=== PATIENT | female | born 1940 | race Caucasian/White ===

== ENCOUNTER 2016-11-05 07:45 | Day surgery (SDC) | payer OTHER, MEDICARE ==
[~2016-11-05] VITALS: Ht 152.4 cm; Wt 96.0 kg
[~2016-11-05 07:45] MED LIST: AMLODIPINE BESYL5 MG PO; ATORVASTATIN CA10 MG PO; AVAPRO150 MG PO; DAILY VALUE1 EACH PO; PROAIR HFA8.5 GM IH; SIMVASTATIN10 MG PO; SYNTHROID100 MCG PO; SYNTHROID112 MCG PO
== END 2016-11-05 19:31 | disposition home or self-care (01) ==
LOC: CATH 07:45
DX: I25.10 Atherosclerotic heart disease of native coronary artery without angina pectoris (principal); I25.82 Chronic total occlusion of coronary artery; I25.84 Coronary atherosclerosis due to calcified coronary lesion; E78.2 Mixed hyperlipidemia; G47.33 Obstructive sleep apnea (adult) (pediatric); I10 Essential (primary) hypertension; E07.9 Disorder of thyroid, unspecified; Z68.41 Body mass index [BMI] 40.0-44.9, adult; Z88.0 Allergy status to penicillin
CPT/HCPCS: 93005; C1760; C1769; C1887; C1894; J2250; J2405; J3010

== ENCOUNTER → 2017-03-19 | Outpatient (CLI) | payer OTHER, MEDICARE ==
[~2017-03-19] MED LIST changes: +LO-DOSE ASPIRIN81 M1 PO
== END | disposition home or self-care (01) ==
LOC: AMB 13:31
DX: K55.20 Angiodysplasia of colon without hemorrhage (principal); D50.9 Iron deficiency anemia, unspecified; K25.9 Gastric ulcer, unspecified as acute or chronic, without hemorrhage or perforation; Q27.39 Arteriovenous malformation, other site; J45.909 Unspecified asthma, uncomplicated; Q00-Q99 Congenital malformations, deformations and chromosomal abnormalities; K29.70 Gastritis, unspecified, without bleeding; E03.9 Hypothyroidism, unspecified; I10 Essential (primary) hypertension; Z79.82 Long term (current) use of aspirin; Z88.0 Allergy status to penicillin; Z87.891 Personal history of nicotine dependence
CPT/HCPCS: 88305; 88342 TC

== ENCOUNTER 2017-10-29 15:13 | Inpatient (IN) | payer OTHER, MEDICARE ==
[2017-10-29] VITALS (7 sets, daily range): BP systolic 110–141; BP diastolic 63–69
[~2017-10-29] VITALS: Ht 154.9 cm; Wt 87.1 kg
[~2017-10-29 15:13] MED LIST changes: +CARAFATE100 MG/ML PO; +LEVO-T125 MCG PO; +LIPITOR10 MG PO; +NITROSTAT0.3 MG SL; +NORVASC10 MG PO; +PLAVIX75 MG PO; +PROTONIX40 MG PO
[2017-10-29 15:38] LABS: HEMATOCRIT 22.1 % (36.0-46.0); MCH 32.4 PG (29.0-34.0); MCHC 30.3 G/DL (30.0-36.0); MCV 106.8 FL (83-99); NRBC (%) 0.3 /100 WBC (0-0); PLATELET COUNT 318 K/uL (156-360); RBC DIS.WIDTH-CV 15.4 % (11.8-14.6); RBC DIS.WIDTH-SD 60.2 % (39-53); RED BLOOD COUNT 2.07 M/uL (3.80-5.20); WHITE BLOOD COUNT 7.9 K/uL (4.1-10.2)
[2017-10-29 15:39] LABS: HEMOGLOBIN 6.7 G/DL (11.9-15.5)
[2017-10-29 15:43] LABS: CHLORIDE 106 mEq/L (99-109); POTASSIUM 4.1 mEq/L (3.7-5.4); SODIUM 142 mEq/L (136-147)
[2017-10-29 15:44] LABS: GLUCOSE 106 mg/dL (70-99)
[2017-10-29 15:48] LABS: CREATININE 4.4 mg/dL (0.6-1.3); GFR ESTIMATE (CALCULATED) 10 mL/min/
[2017-10-29 15:49] LABS: UREA NITROGEN (BUN) 29 mg/dL (9-23)
[2017-10-29 16:34] LABS: HEMATOCRIT 21.4 % (36.0-46.0); MCH 32.8 PG (29.0-34.0); MCHC 30.8 G/DL (30.0-36.0); MCV 106.5 FL (83-99); NRBC (%) 0.3 /100 WBC (0-0); PLATELET COUNT 304 K/uL (156-360); RBC DIS.WIDTH-CV 15.3 % (11.8-14.6); RBC DIS.WIDTH-SD 59.1 % (39-53); RED BLOOD COUNT 2.01 M/uL (3.80-5.20); WHITE BLOOD COUNT 7.5 K/uL (4.1-10.2)
[2017-10-29 16:35] LABS: HEMOGLOBIN 6.6 G/DL (11.9-15.5)
[2017-10-29] MEDS ORDERED: IRBESARTAN150 MG PO (18:00)
[2017-10-29] MEDS ORDERED: CYANOCOBAL1000 MCG/2 IM (18:00)
[2017-10-29] MEDS ORDERED: EPOGEN,PRO20000 UNIT SC (18:01)
[2017-10-29 19:16] LABS: HEMATOCRIT 20.5 % (36.0-46.0); HEMOGLOBIN 6.2 G/DL (11.9-15.5); MCH 32.5 PG (29.0-34.0); MCHC 30.2 G/DL (30.0-36.0); MCV 107.3 FL (83-99); NRBC (%) 0.4 /100 WBC (0-0); PLATELET COUNT 289 K/uL (156-360); RBC DIS.WIDTH-CV 15.6 % (11.8-14.6); RBC DIS.WIDTH-SD 59.7 % (39-53); RED BLOOD COUNT 1.91 M/uL (3.80-5.20); WHITE BLOOD COUNT 7.5 K/uL (4.1-10.2)
[2017-10-30] VITALS (12 sets, daily range): BP systolic 102–132; BP diastolic 50–67
[2017-10-30 04:27] LABS: HEMATOCRIT 27.9 % (36.0-46.0); HEMOGLOBIN 8.9 G/DL (11.9-15.5); MCV 96.5 FL (83-99)
[2017-10-30 04:36] LABS: CHLORIDE 108 mEq/L (99-109); POTASSIUM 4.3 mEq/L (3.7-5.4); SODIUM 142 mEq/L (136-147)
[2017-10-30 04:38] LABS: GLUCOSE 118 mg/dL (70-99)
[2017-10-30 04:42] LABS: CREATININE 4.3 mg/dL (0.6-1.3); GFR ESTIMATE (CALCULATED) 11 mL/min/
[2017-10-30 04:43] LABS: UREA NITROGEN (BUN) 30 mg/dL (9-23)
[2017-10-30 17:48] LABS: HEMATOCRIT 28.5 % (36.0-46.0); HEMOGLOBIN 8.6 G/DL (11.9-15.5); MCV 98.3 FL (83-99)
[2017-10-31 00:04] VITALS: BP 113/54
[2017-10-31 00:37] VITALS: BP 119/56
[2017-10-31 03:43] VITALS: BP 109/52
[2017-10-31 06:15] LABS: BASOPHIL (%) 0.1 % (0-1); EOSINOPHIL COUNT 0.1 K/uL (0-0.3); HEMATOCRIT 31.1 % (36.0-46.0); HEMOGLOBIN 9.9 G/DL (11.9-15.5); IMM.RETIC FRACTION 28.6 % (3-19); IMMATURE GRANULOCYTE (%) 0.6 % (0.0-0.7); LYMPHOCYTE COUNT 0.9 K/uL (1.0-2.8); MCH 29.7 PG (29.0-34.0); MCHC 31.8 G/DL (30.0-36.0); MCV 93.4 FL (83-99); MONOCYTE (%) 7.6 % (3-12); MONOCYTE COUNT 0.7 K/uL (0-0.8); NEUTROPHIL (%) 80.7 % (45-76); NEUTROPHIL COUNT 7.6 K/uL (1.8-6.4); NRBC (%) 0.3 /100 WBC (0-0); PLATELET COUNT 276 K/uL (156-360); RBC DIS.WIDTH-CV 20.5 % (11.8-14.6); RBC DIS.WIDTH-SD 68.8 % (39-53); RED BLOOD COUNT 3.33 M/uL (3.80-5.20); RETIC HGB EQUIVALENT 24.5 (28-36); RETICULOCYTE COUNT 1.8 % (0.5-1.8); WHITE BLOOD COUNT 9.4 K/uL (4.1-10.2)
[2017-10-31 06:35] LABS: IRON 67 MCG/DL (35-150); TRANSFERRIN (TIBC) 155.8 mg/dL (215-380); TRANSFERRIN SATUR. 43 % (20-55)
[2017-10-31 06:38] LABS: ALBUMIN 3.2 G/DL (3.2-4.8); CHLORIDE 104 MEQ/L (99-109); CREATININE 4.3 MG/DL (0.6-1.3); GFR ESTIMATE (CALCULATED) 11 mL/min/; GLUCOSE 106 mg/dL (70-99); PHOSPHORUS 3.9 mg/dL (2.5-4.9); POTASSIUM 3.9 MEQ/L (3.7-5.4); SODIUM 139 MEQ/L (136-147); UREA NITROGEN (BUN) 41 mg/dL (9-23)
[2017-10-31 07:53] VITALS: BP 104/51
[2017-10-31 09:05] LABS: FERRITIN 142 NG/ML (10-291)
[2017-10-31] MEDS ORDERED: METOPROLOL SUCC25 MG PO (09:11)
[2017-10-31 11:47] VITALS: BP 112/53
[2017-10-31] MEDS ORDERED: ASPIR 8181 M1 PO (14:33)
== END 2017-10-31 15:07 | disposition home or self-care (01) | DRG 812 ==
LOC: EME 15:13 → 2EAST 17:46 → EDOF 17:46 → ENRESERV 17:52 → 2EAST 21:10
PROVIDERS: Emergency Medicine Emergency Medical Services; Family Medicine Sports Medicine; Internal Medicine Nephrology; Specialist
PROC: 30233N1 Transfusion of Nonautologous Red Blood Cells into Peripheral Vein, Percutaneous Approach (ICD-10-PCS; principal; 2017-10-29)
PROC: 0DJ08ZZ Inspection of Upper Intestinal Tract, Via Natural or Artificial Opening Endoscopic (ICD-10-PCS; 2017-10-30)
DX: D62 Acute posthemorrhagic anemia (principal); K92.2 Gastrointestinal hemorrhage, unspecified; D63.1 Anemia in chronic kidney disease; N17.9 Acute kidney failure, unspecified; K26.9 Duodenal ulcer, unspecified as acute or chronic, without hemorrhage or perforation; K29.60 Other gastritis without bleeding; I25.10 Atherosclerotic heart disease of native coronary artery without angina pectoris; I13.10 Hypertensive heart and chronic kidney disease without heart failure, with stage 1 through stage 4 chronic kidney disease, or unspecified chronic kidney disease; E11.22 Type 2 diabetes mellitus with diabetic chronic kidney disease; N18.4 Chronic kidney disease, stage 4 (severe); E03.9 Hypothyroidism, unspecified; E78.00 Pure hypercholesterolemia, unspecified; E78.5 Hyperlipidemia, unspecified; G47.33 Obstructive sleep apnea (adult) (pediatric); J45.909 Unspecified asthma, uncomplicated; K21.9 Gastro-esophageal reflux disease without esophagitis; E66.9 Obesity, unspecified; Z96.653 Presence of artificial knee joint, bilateral; Z87.891 Personal history of nicotine dependence; Z88.0 Allergy status to penicillin; Z95.5 Presence of coronary angioplasty implant and graft; Z68.36 Body mass index [BMI] 36.0-36.9, adult; Z79.02 Long term (current) use of antithrombotics/antiplatelets; Z79.82 Long term (current) use of aspirin; Z87.11 Personal history of peptic ulcer disease; Z90.5 Acquired absence of kidney
CPT/HCPCS: 71046; 76770; 80048; 80069; 82728; 83540; 84466; 85014; 85018; 85025; 85027; 85046; 86850; 86900; 86901; 86920; 93005; 99281; 99285; C9113; J1200; J1940; J2354; J7040; J7120; P9016

== ENCOUNTER 2017-11-20 00:05 | Inpatient (IN) | payer OTHER, MEDICARE ==
[2017-11-20] VITALS (12 sets, daily range): BP systolic 121–175; BP diastolic 57–84
[~2017-11-20] VITALS: Ht 154.9 cm; Wt 95.3 kg
[~2017-11-20 00:05] MED LIST changes: +ASPIR 8181 M1 PO; +CYANOCOBAL1000 MCG/2 IM; +EPOGEN,PRO20000 UNIT SC; +IRBESARTAN150 MG PO; +METOPROLOL SUCC25 MG PO
[2017-11-20 00:47] LABS: ALBUMIN 3.1 g/dL (3.2-4.8)
[2017-11-20 00:48] LABS: CHLORIDE 107 mEq/L (99-109); SODIUM 145 mEq/L (136-147)
[2017-11-20 00:50] LABS: GLUCOSE 120 mg/dL (70-99); TOTAL PROTEIN 5.9 g/dL (6.4-8.3)
[2017-11-20 00:51] LABS: HEMATOCRIT 17.7 % (36.0-46.0); MCH 31.1 PG (29.0-34.0); MCHC 31.6 G/DL (30.0-36.0); MCV 98.3 FL (83-99); NRBC (%) 0.4 /100 WBC (0-0); PLATELET COUNT 243 K/uL (156-360); RBC DIS.WIDTH-CV 21.4 % (11.8-14.6); RBC DIS.WIDTH-SD 70.4 % (39-53)
[2017-11-20 00:52] LABS: HEMOGLOBIN 5.6 G/DL (11.9-15.5); TOTAL BILIRUBIN 0.3 mg/dL (0.0-1.0)
[2017-11-20 00:53] LABS: ALKALINE PHOSPHATASE 63 IU/L (3-129)
[2017-11-20 00:54] LABS: CREATININE 4.9 mg/dL (0.6-1.3); GFR ESTIMATE (CALCULATED) 9 mL/min/
[2017-11-20 00:55] LABS: AST (GOT) 17 IU/L (2-34); UREA NITROGEN (BUN) 41 mg/dL (9-23)
[2017-11-20 00:57] LABS: ALT (GPT) 7 IU/L (3-49); LIPASE 23 U/L (1.0-51.0)
[2017-11-20 01:47] LABS: INTER. NORMALIZED RATIO 1.2
[2017-11-20 01:50] LABS: PTT 25.5 SEC (25-37)
[2017-11-20] MEDS ORDERED: RANITIDINE HCL300 MG PO (09:39)
[2017-11-20] MEDS ORDERED: TOPROL XL25 MG PO (09:39)
[2017-11-20] MEDS ORDERED: VENTOLIN HFA18 GM IH (09:40)
[2017-11-20] MEDS ORDERED: LEVOTHYROXINE125 MCG PO (09:41)
[2017-11-20] MEDS ORDERED: NITROGLYCERIN0.4 MG SL (09:41)
[2017-11-20] MEDS ORDERED: PLAVIX75 MG PO (09:41)
[2017-11-20] MEDS ORDERED: ATORVASTATIN CA10 MG PO (09:42)
[2017-11-20] MEDS ORDERED: BREO ELLIPTA I1 EACH IH (09:45)
[2017-11-20 09:50] LABS: HEMATOCRIT 26.7 % (36.0-46.0); MCV 98.2 FL (83-99)
[2017-11-20 09:51] LABS: HEMOGLOBIN 8.7 G/DL (11.9-15.5)
[2017-11-20 12:21] LABS: HEMATOCRIT 26.5 % (36.0-46.0); HEMOGLOBIN 8.4 G/DL (11.9-15.5); MCV 98.9 FL (83-99)
[2017-11-20 20:14] LABS: HEMATOCRIT 30.3 % (36.0-46.0); HEMOGLOBIN 9.7 G/DL (11.9-15.5); MCV 99.7 FL (83-99)
[2017-11-20 20:34] LABS: CHLORIDE 110 MEQ/L (99-109); CREATININE 4.2 MG/DL (0.6-1.3); GFR ESTIMATE (CALCULATED) 11 mL/min/; GLUCOSE 111 mg/dL (70-99); POTASSIUM 3.4 MEQ/L (3.7-5.4); SODIUM 142 MEQ/L (136-147); UREA NITROGEN (BUN) 42 mg/dL (9-23)
[2017-11-21] VITALS (10 sets, daily range): BP systolic 99–130; BP diastolic 52–68
[2017-11-21 00:48] LABS: HEMATOCRIT 23.7 % (36.0-46.0); MCV 97.9 FL (83-99)
[2017-11-21 06:30] LABS: BASOPHIL (%) 0.2 % (0-1); EOSINOPHIL (%) 0.2 % (0-5); HEMATOCRIT 27.2 % (36.0-46.0); HEMOGLOBIN 8.9 G/DL (11.9-15.5); IMMATURE GRANULOCYTE (%) 1.1 % (0.0-0.7); LYMPHOCYTE COUNT 0.9 K/uL (1.0-2.8); MCH 31.4 PG (29.0-34.0); MCHC 32.7 G/DL (30.0-36.0); MCV 96.1 FL (83-99); MONOCYTE COUNT 0.8 K/uL (0-0.8); NEUTROPHIL (%) 79.5 % (45-76); NEUTROPHIL COUNT 6.8 K/uL (1.8-6.4); NRBC (%) 0.9 /100 WBC (0-0); RBC DIS.WIDTH-CV 17.7 % (11.8-14.6); RBC DIS.WIDTH-SD 57.1 % (39-53); WHITE BLOOD COUNT 8.5 K/uL (4.1-10.2)
[2017-11-21 06:36] LABS: ALBUMIN 2.4 G/DL (3.2-4.8); ALKALINE PHOSPHATASE 53 IU/L (3-129); ALT (GPT) 6 IU/L (3-49); AST (GOT) 15 IU/L (2-34); CHLORIDE 111 MEQ/L (99-109); CREATININE 4.2 MG/DL (0.6-1.3); GFR ESTIMATE (CALCULATED) 11 mL/min/; GLUCOSE 94 mg/dL (70-99); MAGNESIUM 1.3 mg/dl (1.3-2.7); PHOSPHORUS 3.8 mg/dL (2.5-4.9); POTASSIUM 3.3 MEQ/L (3.7-5.4); SODIUM 142 MEQ/L (136-147); TOTAL BILIRUBIN 0.5 MG/DL (0.0-1.0); TOTAL PROTEIN 4.7 G/DL (6.4-8.3); UREA NITROGEN (BUN) 48 mg/dL (9-23); URIC ACID 5.8 mg/dL (3.1-9.2)
[2017-11-21 06:38] LABS: RED BLOOD COUNT 2.83 M/uL (3.80-5.20)
[2017-11-21 06:54] LABS: PLAT.SUFFICIENCY ADEQUATE
[2017-11-21 06:56] LABS: PLATELET COUNT 148 K/uL (156-360)
[2017-11-21 12:36] LABS: HEMATOCRIT 31.1 % (36.0-46.0); HEMOGLOBIN 10.1 G/DL (11.9-15.5); MCV 96.6 FL (83-99)
[2017-11-21 18:01] LABS: HEMATOCRIT 29.8 % (36.0-46.0); HEMOGLOBIN 9.7 G/DL (11.9-15.5)
[2017-11-22 03:40] VITALS: BP 100/49
[2017-11-22 07:15] LABS: HEMATOCRIT 27.2 % (36.0-46.0); HEMOGLOBIN 8.6 G/DL (11.9-15.5); MCHC 31.6 G/DL (30.0-36.0); MCV 98.2 FL (83-99); NRBC (%) 0.9 /100 WBC (0-0); PLATELET COUNT 127 K/uL (156-360); RBC DIS.WIDTH-CV 18.4 % (11.8-14.6); RBC DIS.WIDTH-SD 61.1 % (39-53); RED BLOOD COUNT 2.77 M/uL (3.80-5.20); WHITE BLOOD COUNT 5.7 K/uL (4.1-10.2)
[2017-11-22 07:33] VITALS: BP 105/50
[2017-11-22 07:43] LABS: ALBUMIN 2.5 G/DL (3.2-4.8); CHLORIDE 111 MEQ/L (99-109); CREATININE 4.2 MG/DL (0.6-1.3); GFR ESTIMATE (CALCULATED) 11 mL/min/; GLUCOSE 91 mg/dL (70-99); IRON 148 MCG/DL (35-150); PHOSPHORUS 4.3 mg/dL (2.5-4.9); POTASSIUM 3.3 MEQ/L (3.7-5.4); SODIUM 143 MEQ/L (136-147); TRANSFERRIN (TIBC) 90.5 mg/dL (215-380); TRANSFERRIN SATUR. 164 % (20-55); UREA NITROGEN (BUN) 47 mg/dL (9-23)
[2017-11-22 11:37] VITALS: BP 132/67
[2017-11-22 12:09] LABS: APPEARANCE SL.HAZY ((CLEAR)); BILIRUBIN NEGATIVE; BLOOD MODERATE; COLOR YELLOW ((YELLOW)); GLUCOSE (STRIP) 50; KETONES NEGATIVE; LEUKOCYTES TRACE; NITRITE NEGATIVE; PROTEIN (STRIP) 100; SPECIFIC GRAVITY 1.017 (1.000-1.030); UROBILINOGEN 0.2 MG/DL (0.2-1.0)
[2017-11-22 12:15] LABS: BACTERIA RARE /HPF; EPITHELIAL CELLS 1+ /HPF; MUCUS TRACE /LPF; RED BLOOD CELLS 0-5 /HPF (0-5); UCUL ADDED? YES
[2017-11-22 15:59] VITALS: BP 117/55
[2017-11-22 19:36] VITALS: BP 133/60
[2017-11-22 23:25] VITALS: BP 139/64
[2017-11-23 03:36] VITALS: BP 141/68
[2017-11-23 06:54] LABS: BASOPHIL (%) 0.3 % (0-1); EOSINOPHIL (%) 0.4 % (0-5); HEMATOCRIT 29.7 % (36.0-46.0); HEMOGLOBIN 9.5 G/DL (11.9-15.5); LYMPHOCYTE COUNT 0.7 K/uL (1.0-2.8); MCH 31.6 PG (29.0-34.0); MCV 98.7 FL (83-99); MONOCYTE (%) 6.3 % (3-12); MONOCYTE COUNT 0.5 K/uL (0-0.8); NEUTROPHIL COUNT 6.3 K/uL (1.8-6.4); NRBC (%) 0.8 /100 WBC (0-0); PLATELET COUNT 164 K/uL (156-360); RBC DIS.WIDTH-CV 18.9 % (11.8-14.6); RED BLOOD COUNT 3.01 M/uL (3.80-5.20); WHITE BLOOD COUNT 7.6 K/uL (4.1-10.2)
[2017-11-23 07:20] LABS: CHLORIDE 109 MEQ/L (99-109); GFR ESTIMATE (CALCULATED) 12 mL/min/; GLUCOSE 93 mg/dL (70-99); POTASSIUM 3.3 MEQ/L (3.7-5.4); SODIUM 144 MEQ/L (136-147); UREA NITROGEN (BUN) 37 mg/dL (9-23)
[2017-11-23 07:30] VITALS: BP 119/56
[2017-11-23 11:34] VITALS: BP 116/53
[2017-11-23 19:53] VITALS: BP 155/93
[2017-11-24] VITALS (7 sets, daily range): BP systolic 95–129; BP diastolic 55–62
[2017-11-24 06:51] LABS: BASOPHIL (%) 0.3 % (0-1); EOSINOPHIL (%) 0.3 % (0-5); HEMATOCRIT 29.1 % (36.0-46.0); HEMOGLOBIN 9.3 G/DL (11.9-15.5); IMMATURE GRANULOCYTE (%) 1.2 % (0.0-0.7); LYMPHOCYTE (%) 11.1 % (15-42); LYMPHOCYTE COUNT 0.6 K/uL (1.0-2.8); MCH 31.8 PG (29.0-34.0); MCV 99.7 FL (83-99); MONOCYTE (%) 8.1 % (3-12); MONOCYTE COUNT 0.5 K/uL (0-0.8); NEUTROPHIL COUNT 4.6 K/uL (1.8-6.4); NRBC (%) 0.7 /100 WBC (0-0); PLATELET COUNT 163 K/uL (156-360); RBC DIS.WIDTH-CV 19.3 % (11.8-14.6); RBC DIS.WIDTH-SD 62.7 % (39-53); RED BLOOD COUNT 2.92 M/uL (3.80-5.20); WHITE BLOOD COUNT 5.8 K/uL (4.1-10.2)
[2017-11-24 07:15] LABS: CHLORIDE 111 MEQ/L (99-109); CREATININE 4.1 MG/DL (0.6-1.3); GFR ESTIMATE (CALCULATED) 11 mL/min/; GLUCOSE 91 mg/dL (70-99); POTASSIUM 3.4 MEQ/L (3.7-5.4); SODIUM 144 MEQ/L (136-147); UREA NITROGEN (BUN) 32 mg/dL (9-23)
[2017-11-24 07:16] LABS: MAGNESIUM 2.1 mg/dl (1.3-2.7)
[2017-11-25 07:05] LABS: HEMATOCRIT 28.3 % (36.0-46.0); HEMOGLOBIN 8.8 G/DL (11.9-15.5); MCV 99.3 FL (83-99)
[2017-11-25 07:54] VITALS: BP 123/51
[2017-11-25] MEDS ORDERED: FUROSEMIDE20 MG PO (14:09)
[2017-11-25] MEDS ORDERED: PANTOPRAZOLE SO40 MG PO (14:10)
[2017-11-25] MEDS ORDERED: OXYGEN MC (14:16)
== END 2017-11-25 15:35 | disposition home or self-care (01) | DRG 377 ==
LOC: EME 00:05 → 2EASTP 03:40 → EDOF 03:40 → 4EAST 03:40 → ENRESERV 04:09 → 4EAST 10:03 → ENRESERV 11-21 20:14 → 2EASTP 11-21 22:43
PROVIDERS: Emergency Medicine; Family Medicine; Family Medicine Sports Medicine; Internal Medicine Gastroenterology; Internal Medicine Nephrology
DX: K92.2 Gastrointestinal hemorrhage, unspecified (principal); N17.0 Acute kidney failure with tubular necrosis; D62 Acute posthemorrhagic anemia; N18.4 Chronic kidney disease, stage 4 (severe); E11.22 Type 2 diabetes mellitus with diabetic chronic kidney disease; I12.9 Hypertensive chronic kidney disease with stage 1 through stage 4 chronic kidney disease, or unspecified chronic kidney disease; D17.5 Benign lipomatous neoplasm of intra-abdominal organs; D63.1 Anemia in chronic kidney disease; E03.9 Hypothyroidism, unspecified; E78.5 Hyperlipidemia, unspecified; E86.0 Dehydration; E87.2 Acidosis; E87.6 Hypokalemia; I25.10 Atherosclerotic heart disease of native coronary artery without angina pectoris; K21.9 Gastro-esophageal reflux disease without esophagitis; K25.9 Gastric ulcer, unspecified as acute or chronic, without hemorrhage or perforation; K26.9 Duodenal ulcer, unspecified as acute or chronic, without hemorrhage or perforation; K29.70 Gastritis, unspecified, without bleeding; K31.819 Angiodysplasia of stomach and duodenum without bleeding; K55.20 Angiodysplasia of colon without hemorrhage; K64.8 Other hemorrhoids; Z95.5 Presence of coronary angioplasty implant and graft; Z90.5 Acquired absence of kidney; Z90.710 Acquired absence of both cervix and uterus; E66.9 Obesity, unspecified; Z68.38 Body mass index [BMI] 38.0-38.9, adult; E11.21 Type 2 diabetes mellitus with diabetic nephropathy; R09.02 Hypoxemia
CPT/HCPCS: 74176; 80048; 80048 91; 80053; 80069; 81003; 83540; 83605; 83690; 83735; 84100; 84466; 84550; 85014; 85018; 85025; 85027; 85610; 85730; 86850; 86900; 86901; 86920; 87077; 87086; 87186; 88305; 94640; 94640 76; 96365; 99202; 99281; 99285; C9113; J0881; J1940; J2405; J3480; J7030; J7050; J7120; P9016; Q0138; S0030

== ENCOUNTER 2017-12-08 08:26 | Day surgery (SDC) | payer OTHER, MEDICARE ==
[~2017-12-08 08:26] MED LIST changes: +BREO ELLIPTA I1 EACH IH; +FUROSEMIDE20 MG PO; +LEVOTHYROXINE125 MCG PO; +NITROGLYCERIN0.4 MG SL; +OXYGEN MC; +PANTOPRAZOLE SO40 MG PO; +RANITIDINE HCL300 MG PO; +TOPROL XL25 MG PO; +VENTOLIN HFA18 GM IH
== END 2017-12-08 10:57 | disposition home or self-care (01) ==
LOC: CATH 08:26
DX: I12.9 Hypertensive chronic kidney disease with stage 1 through stage 4 chronic kidney disease, or unspecified chronic kidney disease (principal); N18.9 Chronic kidney disease, unspecified; Z99.2 Dependence on renal dialysis; Z88.0 Allergy status to penicillin
CPT/HCPCS: C1750; C1894; J1644; J2250; J3010; S0020

== ENCOUNTER 2017-12-10 12:47 | Inpatient (IN) | payer OTHER, MEDICARE ==
[~2017-12-10] VITALS: Ht 154.9 cm; Wt 88.7 kg
[2017-12-10] VITALS (8 sets, daily range): BP systolic 97–128; BP diastolic 52–85
[2017-12-10 13:47] LABS: CARBON DIOXIDE (BICARBONATE) 37.7 MEQ/L (20-31)
[2017-12-10 13:51] LABS: CHLORIDE 99 mEq/L (99-109); SODIUM 144 mEq/L (136-147)
[2017-12-10 13:52] LABS: GLUCOSE 91 mg/dL (70-99)
[2017-12-10 13:53] LABS: HEMATOCRIT 21.5 % (36.0-46.0); HEMOGLOBIN 6.9 G/DL (11.9-15.5); MCH 31.9 PG (29.0-34.0); MCHC 32.1 G/DL (30.0-36.0); MCV 99.5 FL (83-99); NRBC (%) 0.5 /100 WBC (0-0); PLATELET COUNT 168 K/uL (156-360); RBC DIS.WIDTH-CV 21.8 % (11.8-14.6); RBC DIS.WIDTH-SD 77.4 % (39-53); RED BLOOD COUNT 2.16 M/uL (3.80-5.20); WHITE BLOOD COUNT 6.5 K/uL (4.1-10.2)
[2017-12-10 13:56] LABS: CREATININE 3.1 mg/dL (0.6-1.3); GFR ESTIMATE (CALCULATED) 16 mL/min/
[2017-12-10 13:57] LABS: UREA NITROGEN (BUN) 24 mg/dL (9-23)
[2017-12-10 14:02] LABS: TROP-I INTERPRETATION INDETERMINATE; TROPONIN-I 0.53 ng/mL (0.0-0.30)
[2017-12-10 14:03] LABS: POTASSIUM 2.4 mEq/L (3.7-5.4)
[2017-12-10] MEDS ORDERED: FUROSEMIDE20 MG PO (16:06)
[2017-12-10] MEDS ORDERED: ALBUTEROL2.5 MG/0.5 IH (16:07)
[2017-12-10] MEDS ORDERED: PROTONIX40 MG PO (16:07)
[2017-12-10 18:28] LABS: CHLORIDE 99 MEQ/L (99-109); GFR ESTIMATE (CALCULATED) 16 mL/min/; GLUCOSE 94 mg/dL (70-99); POTASSIUM 2.5 MEQ/L (3.7-5.4); SODIUM 143 MEQ/L (136-147); UREA NITROGEN (BUN) 23 mg/dL (9-23)
[2017-12-10 18:31] LABS: APPEARANCE CLOUDY ((CLEAR)); BILIRUBIN NEGATIVE; BLOOD LARGE; COLOR YELLOW ((YELLOW)); GLUCOSE (STRIP) NEGATIVE; KETONES 5; LEUKOCYTES SMALL; NITRITE NEGATIVE; PROTEIN (STRIP) 100; SPECIFIC GRAVITY 1.017 (1.000-1.030); UROBILINOGEN 0.2 MG/DL (0.2-1.0)
[2017-12-10 18:41] LABS: BACTERIA 3+ /HPF; EPITHELIAL CELLS RARE /HPF; MUCUS TRACE /LPF; UCUL ADDED? YES; WHITE BLOOD CELLS TNTC /HPF (0-5)
[2017-12-11 03:00] VITALS: BP 94/50
[2017-12-11 06:04] LABS: HEMATOCRIT 27.9 % (36.0-46.0); MCH 31.5 PG (29.0-34.0); NRBC (%) 0.5 /100 WBC (0-0); PLATELET COUNT 157 K/uL (156-360); RBC DIS.WIDTH-CV 19.4 % (11.8-14.6); RBC DIS.WIDTH-SD 59.8 % (39-53); WHITE BLOOD COUNT 5.6 K/uL (4.1-10.2)
[2017-12-11 06:07] LABS: HEMOGLOBIN 9.2 G/DL (11.9-15.5); MCV 95.5 FL (83-99); RED BLOOD COUNT 2.92 M/uL (3.80-5.20)
[2017-12-11 06:15] LABS: INTER. NORMALIZED RATIO 1.1
[2017-12-11 06:16] LABS: PTT 22.6 SEC (25-37)
[2017-12-11 06:35] LABS: CHLORIDE 99 MEQ/L (99-109); GFR ESTIMATE (CALCULATED) 16 mL/min/; GLUCOSE 85 mg/dL (70-99); SODIUM 140 MEQ/L (136-147); UREA NITROGEN (BUN) 25 mg/dL (9-23)
[2017-12-11 07:26] VITALS: BP 136/66
[2017-12-11 10:21] LABS: C DIFF TOXIN NEGATIVE (NEGATIVE)
[2017-12-11 11:14] VITALS: BP 117/56
[2017-12-11 16:21] VITALS: BP 102/50
[2017-12-11 19:00] VITALS: BP 101/57
[2017-12-11 23:00] VITALS: BP 105/56
[2017-12-12 01:16] LABS: STOOL OCCULT BLD 1ST SPECIMEN POSITIVE
[2017-12-12 04:00] VITALS: BP 104/51
[2017-12-12 05:19] LABS: HEMATOCRIT 32.4 % (36.0-46.0); HEMOGLOBIN 10.3 G/DL (11.9-15.5); MCH 30.8 PG (29.0-34.0); MCHC 31.8 G/DL (30.0-36.0); NRBC (%) 0.7 /100 WBC (0-0); PLATELET COUNT 178 K/uL (156-360); RBC DIS.WIDTH-CV 20.1 % (11.8-14.6); RBC DIS.WIDTH-SD 63.1 % (39-53); RED BLOOD COUNT 3.34 M/uL (3.80-5.20); WHITE BLOOD COUNT 8.2 K/uL (4.1-10.2)
[2017-12-12 08:15] VITALS: BP 117/64
[2017-12-12 10:18] LABS: ALBUMIN 2.9 G/DL (3.2-4.8); CHLORIDE 102 MEQ/L (99-109); CREATININE 2.5 MG/DL (0.6-1.3); GFR ESTIMATE (CALCULATED) 20 mL/min/; GLUCOSE 125 mg/dL (70-99); PHOSPHORUS 2.8 mg/dL (2.5-4.9); POTASSIUM 3.4 MEQ/L (3.7-5.4); SODIUM 140 MEQ/L (136-147); UREA NITROGEN (BUN) 13 mg/dL (9-23)
[2017-12-12 12:02] VITALS: BP 118/75
[2017-12-12 12:35] VITALS: BP 117/58
[2017-12-12 19:49] VITALS: BP 104/51
[2017-12-12 23:04] VITALS: BP 90/54
[2017-12-13] VITALS (8 sets, daily range): BP systolic 84–115; BP diastolic 50–64
[2017-12-13 05:27] LABS: HEMATOCRIT 29.5 % (36.0-46.0); HEMOGLOBIN 9.2 G/DL (11.9-15.5); MCH 30.8 PG (29.0-34.0); MCHC 31.2 G/DL (30.0-36.0); MCV 98.7 FL (83-99); NRBC (%) 0.6 /100 WBC (0-0); PLATELET COUNT 161 K/uL (156-360); RBC DIS.WIDTH-CV 19.9 % (11.8-14.6); RBC DIS.WIDTH-SD 64.9 % (39-53); RED BLOOD COUNT 2.99 M/uL (3.80-5.20); WHITE BLOOD COUNT 6.4 K/uL (4.1-10.2)
[2017-12-13 07:56] LABS: THYROTROPIN (TSH) 12.9 MIU/L (0.4-5.5)
[2017-12-14] VITALS (8 sets, daily range): BP systolic 87–124; BP diastolic 52–60
[2017-12-14 05:21] LABS: HEMATOCRIT 26.8 % (36.0-46.0); HEMOGLOBIN 8.4 G/DL (11.9-15.5); MCH 31.2 PG (29.0-34.0); MCHC 31.3 G/DL (30.0-36.0); MCV 99.6 FL (83-99); NRBC (%) 0.8 /100 WBC (0-0); PLATELET COUNT 152 K/uL (156-360); RBC DIS.WIDTH-CV 19.8 % (11.8-14.6); RBC DIS.WIDTH-SD 67.7 % (39-53); RED BLOOD COUNT 2.69 M/uL (3.80-5.20); WHITE BLOOD COUNT 6.1 K/uL (4.1-10.2)
[2017-12-15 00:02] VITALS: BP 95/54
[2017-12-15 02:53] VITALS: BP 134/66
[2017-12-15 05:26] LABS: HEMATOCRIT 28.2 % (36.0-46.0); HEMOGLOBIN 8.8 G/DL (11.9-15.5); MCH 31.1 PG (29.0-34.0); MCHC 31.2 G/DL (30.0-36.0); MCV 99.6 FL (83-99); NRBC (%) 0.9 /100 WBC (0-0); PLATELET COUNT 159 K/uL (156-360); RBC DIS.WIDTH-CV 19.6 % (11.8-14.6); RED BLOOD COUNT 2.83 M/uL (3.80-5.20); WHITE BLOOD COUNT 6.3 K/uL (4.1-10.2)
[2017-12-15 06:16] LABS: ABS NEUTROPHIL COUNT 4.8; ANISOCYTOSIS 1+; BAND NEUTROPHILS 3.5 % (0-8.0); EOSINOPHIL ABS CT 0.1; EOSINOPHILS 0.9 % (0-5.0); LYMPHOCYTES 13.2 % (15.0-45.0); MACROCYTES 2+; METAMYELOCYTES 0.9 %; MYELOCYTES 2.6 %; PLAT.SUFFICIENCY ADEQUATE; SEG.NEUTROPHILS 71.9 % (46.0-76.0)
[2017-12-15] MEDS ORDERED: XOPENEX1.25 MG/0. AEROSOL (08:57)
[2017-12-15] MEDS ORDERED: LOPRESSOR25 MG PO (08:58)
[2017-12-15] MEDS ORDERED: SUCRALFATE1 GM/10 ML PO (08:59)
[2017-12-15 09:25] LABS: ALBUMIN 2.6 G/DL (3.2-4.8); CHLORIDE 100 MEQ/L (99-109); POTASSIUM 3.5 MEQ/L (3.7-5.4); SODIUM 135 MEQ/L (136-147)
[2017-12-15 09:33] LABS: GFR ESTIMATE (CALCULATED) 10 mL/min/; GLUCOSE 94 mg/dL (70-99); PHOSPHORUS 2.6 mg/dL (2.5-4.9); UREA NITROGEN (BUN) 14 mg/dL (9-23)
[2017-12-15 09:37] LABS: CREATININE 4.7 MG/DL (0.6-1.3)
[2017-12-15 10:59] LABS: CHLORIDE 100 MEQ/L (99-109); CREATININE 4.5 MG/DL (0.6-1.3); GFR ESTIMATE (CALCULATED) 10 mL/min/; GLUCOSE 91 mg/dL (70-99); LACTATE DEHYDROGENASE 301 IU/L (20-246); POTASSIUM 3.4 MEQ/L (3.7-5.4); SODIUM 134 MEQ/L (136-147); UREA NITROGEN (BUN) 14 mg/dL (9-23)
[2017-12-15 12:08] VITALS: BP 94/45
[2017-12-15 16:06] VITALS: BP 103/51
[2017-12-15 19:00] VITALS: BP 102/56
[2017-12-16] VITALS: BP 91/47
[2017-12-16 03:00] VITALS: BP 107/58
[2017-12-16 05:57] LABS: HEMATOCRIT 31.3 % (36.0-46.0); MCH 31.5 PG (29.0-34.0); MCHC 31.9 G/DL (30.0-36.0); MCV 98.7 FL (83-99); NRBC (%) 0.8 /100 WBC (0-0); PLATELET COUNT 162 K/uL (156-360); RBC DIS.WIDTH-CV 19.3 % (11.8-14.6); RBC DIS.WIDTH-SD 63.7 % (39-53); RED BLOOD COUNT 3.17 M/uL (3.80-5.20); WHITE BLOOD COUNT 6.2 K/uL (4.1-10.2)
[2017-12-16 07:29] VITALS: BP 130/60
== END 2017-12-16 19:12 | disposition home or self-care (01) | DRG 811 ==
LOC: EME 12:47 → EDOF 15:22 → 4EAST 15:22 → ENRESERV 15:33 → 4EAST 17:25 → ENPENDDIS 12-16 → 4EAST 12-16 19:12
PROVIDERS: Emergency Medicine; Family Medicine Sports Medicine; Internal Medicine Nephrology; Specialist
PROC: 30233N1 Transfusion of Nonautologous Red Blood Cells into Peripheral Vein, Percutaneous Approach (ICD-10-PCS; principal; 2017-12-10)
PROC: 5A1D70Z Performance of Urinary Filtration, Intermittent, Less than 6 Hours Per Day (ICD-10-PCS; 2017-12-11)
DX: D62 Acute posthemorrhagic anemia (principal); I48.91 Unspecified atrial fibrillation; I13.2 Hypertensive heart and chronic kidney disease with heart failure and with stage 5 chronic kidney disease, or end stage renal disease; I50.9 Heart failure, unspecified; N18.6 End stage renal disease; I24.8 Other forms of acute ischemic heart disease; I25.82 Chronic total occlusion of coronary artery; J44.9 Chronic obstructive pulmonary disease, unspecified; I95.9 Hypotension, unspecified; K92.1 Melena; N39.0 Urinary tract infection, site not specified; B96.1 Klebsiella pneumoniae [K. pneumoniae] as the cause of diseases classified elsewhere; D63.1 Anemia in chronic kidney disease; E87.6 Hypokalemia; I25.10 Atherosclerotic heart disease of native coronary artery without angina pectoris; E78.5 Hyperlipidemia, unspecified; E03.9 Hypothyroidism, unspecified; G47.33 Obstructive sleep apnea (adult) (pediatric); K21.9 Gastro-esophageal reflux disease without esophagitis; Z96.653 Presence of artificial knee joint, bilateral; E66.9 Obesity, unspecified; Z68.36 Body mass index [BMI] 36.0-36.9, adult; Z99.2 Dependence on renal dialysis; Z95.5 Presence of coronary angioplasty implant and graft; Z90.5 Acquired absence of kidney; Z87.891 Personal history of nicotine dependence; Z88.0 Allergy status to penicillin; Z87.11 Personal history of peptic ulcer disease
CPT/HCPCS: 71045; 74250; 80048; 80048 91; 80069; 81003; 82272; 82607; 82803; 83010 90; 83605; 83615; 83880; 84439; 84443; 84484; 85025; 85027; 85610; 85730; 86850; 86900; 86901; 86920; 87040; 87077; 87086; 87177; 87186; 87493; 87506; 87641; 93005; 94640; 94640 76; 94799; 99202; 99281; 99285; A6214; C9113; J0696; J1644; J3475; J3480; P9016

== ENCOUNTER 2017-12-24 15:26 | Observation (INO) | payer OTHER, MEDICARE ==
[~2017-12-24] VITALS: Ht 154.9 cm; Wt 82.3 kg
[~2017-12-24 15:26] MED LIST changes: +ALBUTEROL2.5 MG/0.5 IH; +LOPRESSOR25 MG PO; +SUCRALFATE1 GM/10 ML PO; +XOPENEX1.25 MG/0. AEROSOL
[2017-12-24 17:14] LABS: HEMOGLOBIN 11.4 G/DL (11.9-15.5); MCH 31.8 PG (29.0-34.0); MCHC 32.6 G/DL (30.0-36.0); MCV 97.8 FL (83-99); PLATELET COUNT 144 K/uL (156-360); RBC DIS.WIDTH-CV 19.2 % (11.8-14.6); RBC DIS.WIDTH-SD 67.7 % (39-53); RED BLOOD COUNT 3.58 M/uL (3.80-5.20); WHITE BLOOD COUNT 9.5 K/uL (4.1-10.2)
[2017-12-24 17:22] LABS: ALBUMIN 2.9 g/dL (3.2-4.8); CHLORIDE 104 mEq/L (99-109); POTASSIUM 3.4 mEq/L (3.7-5.4); SODIUM 139 mEq/L (136-147)
[2017-12-24 17:25] LABS: GLUCOSE 108 mg/dL (70-99); TOTAL PROTEIN 6.3 g/dL (6.4-8.3)
[2017-12-24 17:27] LABS: TOTAL BILIRUBIN 0.5 mg/dL (0.0-1.0)
[2017-12-24 17:28] LABS: ALKALINE PHOSPHATASE 86 IU/L (3-129); CREATININE 2.4 mg/dL (0.6-1.3); GFR ESTIMATE (CALCULATED) 21 mL/min/
[2017-12-24 17:29] LABS: UREA NITROGEN (BUN) 5 mg/dL (9-23)
[2017-12-24 17:30] LABS: AST (GOT) 32 IU/L (2-34)
[2017-12-24 17:31] LABS: ALT (GPT) 9 IU/L (3-49)
[2017-12-24 17:34] LABS: TROP-I INTERPRETATION NEGATIVE; TROPONIN-I 0.24 ng/mL (0.0-0.30)
[2017-12-24] MEDS ORDERED: TOPROL XL50 MG PO (17:48)
[2017-12-24] MEDS ORDERED: VENTOLIN HFA18 GM IH (17:49)
[2017-12-24] MEDS ORDERED: ALBUTEROL2.5 MG/0.5 IH (17:50)
[2017-12-24 20:43] LABS: TROP-I INTERPRETATION NEGATIVE; TROPONIN-I 0.28 ng/mL (0.0-0.30)
[2017-12-24 21:46] LABS: THYROTROPIN (TSH) 24.1 MIU/L (0.4-5.5)
[2017-12-24 23:36] VITALS: BP 110/57
[2017-12-25 02:19] LABS: TROP-I INTERPRETATION INDETERMINATE; TROPONIN-I 0.41 ng/mL (0.0-0.30)
[2017-12-25 03:00] VITALS: BP 101/58
[2017-12-25 07:14] VITALS: BP 100/57
[2017-12-25 08:02] LABS: HEMOGLOBIN 11.1 G/DL (11.9-15.5); MCH 31.6 PG (29.0-34.0); MCHC 31.7 G/DL (30.0-36.0); MCV 99.7 FL (83-99); PLATELET COUNT 129 K/uL (156-360); RBC DIS.WIDTH-CV 19.8 % (11.8-14.6); RBC DIS.WIDTH-SD 69.8 % (39-53); RED BLOOD COUNT 3.51 M/uL (3.80-5.20); WHITE BLOOD COUNT 8.3 K/uL (4.1-10.2)
[2017-12-25 08:30] LABS: TROP-I INTERPRETATION INDETERMINATE; TROPONIN-I 0.35 ng/mL (0.0-0.30)
[2017-12-25 10:49] LABS: CHLORIDE 103 MEQ/L (99-109); GFR ESTIMATE (CALCULATED) 15 mL/min/; GLUCOSE 87 mg/dL (70-99); SODIUM 138 MEQ/L (136-147); UREA NITROGEN (BUN) 7 mg/dL (9-23)
[2017-12-25 10:51] LABS: CREATININE 3.2 MG/DL (0.6-1.3)
[2017-12-25 11:35] VITALS: BP 108/54
[2017-12-25 15:49] VITALS: BP 108/59
[2017-12-25 19:18] VITALS: BP 110/62
[2017-12-26 00:24] VITALS: BP 92/55
[2017-12-26 04:41] VITALS: BP 98/53
[2017-12-26 09:01] LABS: BASOPHIL (%) 0.3 % (0-1); EOSINOPHIL (%) 0.4 % (0-5); HEMATOCRIT 31.5 % (36.0-46.0); HEMOGLOBIN 9.9 G/DL (11.9-15.5); IMMATURE GRANULOCYTE (%) 0.6 % (0.0-0.7); LYMPHOCYTE (%) 12.7 % (15-42); LYMPHOCYTE COUNT 0.9 K/uL (1.0-2.8); MCH 31.5 PG (29.0-34.0); MCHC 31.4 G/DL (30.0-36.0); MCV 100.3 FL (83-99); MONOCYTE COUNT 0.6 K/uL (0-0.8); NEUTROPHIL COUNT 5.6 K/uL (1.8-6.4); PLATELET COUNT 130 K/uL (156-360); RBC DIS.WIDTH-CV 19.7 % (11.8-14.6); RBC DIS.WIDTH-SD 70.4 % (39-53); RED BLOOD COUNT 3.14 M/uL (3.80-5.20); WHITE BLOOD COUNT 7.2 K/uL (4.1-10.2)
[2017-12-26 09:11] LABS: ALBUMIN 2.6 G/DL (3.2-4.8); CHLORIDE 102 MEQ/L (99-109); POTASSIUM 3.5 MEQ/L (3.7-5.4); SODIUM 139 MEQ/L (136-147)
[2017-12-26 09:23] LABS: GLUCOSE 94 mg/dL (70-99); UREA NITROGEN (BUN) 12 mg/dL (9-23)
[2017-12-26 09:24] LABS: CREATININE 4.4 MG/DL (0.6-1.3); GFR ESTIMATE (CALCULATED) 10 mL/min/; PHOSPHORUS 4.6 mg/dL (2.5-4.9)
[2017-12-26] MEDS ORDERED: LEVOTHYROXINE125 MCG PO (12:25)
[2017-12-26 12:31] VITALS: BP 125/61
[2017-12-26] MEDS ORDERED: MULTI VITAMIN1 EACH PO (23:16)
[2017-12-27] MEDS ORDERED: ZOFRAN ODT4 MG PO (02:47)
== END 2017-12-26 13:35 | disposition home or self-care (01) ==
LOC: EME 15:26 → EDOF 20:18 → 4SOUTH 20:18 → ENRESERV 20:23 → 4SOUTH 23:14 → ENPENDDIS 12-26 → 4SOUTH 12-26 13:35
PROVIDERS: Emergency Medicine; Hospitalist; Internal Medicine Nephrology
PROC: 5A1D70Z Performance of Urinary Filtration, Intermittent, Less than 6 Hours Per Day (ICD-10-PCS; principal; 2017-12-26)
DX: I48.0 Paroxysmal atrial fibrillation (principal); I13.2 Hypertensive heart and chronic kidney disease with heart failure and with stage 5 chronic kidney disease, or end stage renal disease; N18.6 End stage renal disease; Z99.2 Dependence on renal dialysis; D63.1 Anemia in chronic kidney disease; Z90.5 Acquired absence of kidney; I50.9 Heart failure, unspecified; I25.10 Atherosclerotic heart disease of native coronary artery without angina pectoris; G47.33 Obstructive sleep apnea (adult) (pediatric); E78.5 Hyperlipidemia, unspecified; E03.9 Hypothyroidism, unspecified; J45.909 Unspecified asthma, uncomplicated; Z95.5 Presence of coronary angioplasty implant and graft; Z88.0 Allergy status to penicillin; Z87.891 Personal history of nicotine dependence
CPT/HCPCS: 71045; 80048; 80053; 80069; 83880; 84443; 84484; 85025; 85027; 93005; 94640; 94640 76; 94660; 94799; 99202; 99281; 99285; G0257; G0378; J0881; J1644

== ENCOUNTER 2017-12-26 21:14 | Inpatient (IN) | payer OTHER, MEDICARE ==
[~2017-12-26] VITALS: Ht 154.9 cm; Wt 81.2 kg
[~2017-12-26 21:14] MED LIST changes: +TOPROL XL50 MG PO
[2017-12-26 21:40] LABS: HEMATOCRIT 32.9 % (36.0-46.0); HEMOGLOBIN 10.6 G/DL (11.9-15.5); MCHC 32.2 G/DL (30.0-36.0); MCV 99.4 FL (83-99); PLATELET COUNT 140 K/uL (156-360); RBC DIS.WIDTH-CV 19.4 % (11.8-14.6); RBC DIS.WIDTH-SD 68.5 % (39-53); RED BLOOD COUNT 3.31 M/uL (3.80-5.20); WHITE BLOOD COUNT 8.5 K/uL (4.1-10.2)
[2017-12-26 21:49] LABS: CHLORIDE 102 mEq/L (99-109); POTASSIUM 3.5 mEq/L (3.7-5.4); SODIUM 140 mEq/L (136-147)
[2017-12-26 21:51] LABS: GLUCOSE 103 mg/dL (70-99); TOTAL PROTEIN 6.4 g/dL (6.4-8.3)
[2017-12-26 21:53] LABS: TOTAL BILIRUBIN 0.4 mg/dL (0.0-1.0)
[2017-12-26 21:54] LABS: ALKALINE PHOSPHATASE 77 IU/L (3-129)
[2017-12-26 21:55] LABS: GFR ESTIMATE (CALCULATED) 20 mL/min/
[2017-12-26 21:56] LABS: AST (GOT) 30 IU/L (2-34); UREA NITROGEN (BUN) 6 mg/dL (9-23)
[2017-12-26 21:57] LABS: ALT (GPT) 8 IU/L (3-49); CREATININE 2.5 mg/dL (0.6-1.3)
[2017-12-26 21:58] LABS: LIPASE 50 U/L (1.0-51.0)
[2017-12-26 22:31] LABS: TROP-I INTERPRETATION NEGATIVE; TROPONIN-I 0.23 ng/mL (0.0-0.30)
[2017-12-26] MEDS ORDERED: MULTI VITAMIN1 EACH PO (23:16)
[2017-12-27] VITALS (11 sets, daily range): BP systolic 83–115; BP diastolic 46–57
[2017-12-27 02:34] LABS: HEMATOCRIT 29.2 % (36.0-46.0); HEMOGLOBIN 9.4 G/DL (11.9-15.5); MCV 100.3 FL (83-99)
[2017-12-27] MEDS ORDERED: ZOFRAN ODT4 MG PO (02:47)
[2017-12-27 06:42] LABS: HEMATOCRIT 28.7 % (36.0-46.0); MCV 101.4 FL (83-99)
[2017-12-27 07:20] LABS: TROP-I INTERPRETATION NEGATIVE; TROPONIN-I 0.22 ng/mL (0.0-0.30)
[2017-12-27 12:17] LABS: HEMATOCRIT 25.7 % (36.0-46.0); MCV 102.8 FL (83-99)
[2017-12-27 12:48] LABS: TROP-I INTERPRETATION INDETERMINATE; TROPONIN-I 0.34 ng/mL (0.0-0.30)
[2017-12-28] VITALS (7 sets, daily range): BP systolic 96–119; BP diastolic 53–64
[2017-12-28 01:45] LABS: HEMATOCRIT 35.5 % (36.0-46.0); HEMOGLOBIN 11.5 G/DL (11.9-15.5); MCV 96.2 FL (83-99)
[2017-12-28 03:57] LABS: CHLORIDE 108 mEq/L (99-109); SODIUM 140 mEq/L (136-147)
[2017-12-28 03:58] LABS: MCHC 32.2 G/DL (30.0-36.0); NRBC (%) 0.5 /100 WBC (0-0); PLATELET COUNT 111 K/uL (156-360); RBC DIS.WIDTH-CV 20.4 % (11.8-14.6); RBC DIS.WIDTH-SD 68.8 % (39-53); RED BLOOD COUNT 3.68 M/uL (3.80-5.20); WHITE BLOOD COUNT 6.4 K/uL (4.1-10.2)
[2017-12-28 03:59] LABS: BASOPHIL (%) 0.5 % (0-1); EOSINOPHIL (%) 0.3 % (0-5); GLUCOSE 96 mg/dL (70-99); IMMATURE GRANULOCYTE (%) 1.1 % (0.0-0.7); LYMPHOCYTE (%) 16.5 % (15-42); LYMPHOCYTE COUNT 1.1 K/uL (1.0-2.8); MONOCYTE (%) 7.9 % (3-12); MONOCYTE COUNT 0.5 K/uL (0-0.8); NEUTROPHIL (%) 73.7 % (45-76); NEUTROPHIL COUNT 4.7 K/uL (1.8-6.4)
[2017-12-28 04:03] LABS: GFR ESTIMATE (CALCULATED) 12 mL/min/
[2017-12-28 04:04] LABS: UREA NITROGEN (BUN) 12 mg/dL (9-23)
[2017-12-29] VITALS (7 sets, daily range): BP systolic 90–122; BP diastolic 50–63
[2017-12-29 06:16] LABS: BASOPHIL (%) 0.4 % (0-1); EOSINOPHIL (%) 0.4 % (0-5); HEMATOCRIT 35.7 % (36.0-46.0); HEMOGLOBIN 11.2 G/DL (11.9-15.5); IMMATURE GRANULOCYTE (%) 0.7 % (0.0-0.7); LYMPHOCYTE (%) 11.5 % (15-42); LYMPHOCYTE COUNT 0.6 K/uL (1.0-2.8); MCH 30.8 PG (29.0-34.0); MCHC 31.4 G/DL (30.0-36.0); MCV 98.1 FL (83-99); MONOCYTE (%) 8.4 % (3-12); MONOCYTE COUNT 0.5 K/uL (0-0.8); NEUTROPHIL (%) 78.6 % (45-76); NEUTROPHIL COUNT 4.3 K/uL (1.8-6.4); NRBC (%) 0.7 /100 WBC (0-0); PLATELET COUNT 113 K/uL (156-360); RBC DIS.WIDTH-CV 19.5 % (11.8-14.6); RBC DIS.WIDTH-SD 67.8 % (39-53); RED BLOOD COUNT 3.64 M/uL (3.80-5.20); WHITE BLOOD COUNT 5.5 K/uL (4.1-10.2)
[2017-12-29 10:21] LABS: ALBUMIN 2.5 G/DL (3.2-4.8); CHLORIDE 104 MEQ/L (99-109); SODIUM 139 MEQ/L (136-147)
[2017-12-29 10:27] LABS: GFR ESTIMATE (CALCULATED) 9 mL/min/; GLUCOSE 111 mg/dL (70-99); PHOSPHORUS 5.6 mg/dL (2.5-4.9)
[2017-12-29 10:28] LABS: CREATININE 5.2 MG/DL (0.6-1.3); UREA NITROGEN (BUN) 21 mg/dL (9-23)
[2017-12-30 03:36] VITALS: BP 96/54
[2017-12-30 07:23] VITALS: BP 116/56
== END 2017-12-30 08:10 | disposition designated cancer center or children's hospital, planned readmission (85) | DRG 377 ==
LOC: EME → EDBD 21:14 → EME 21:14 → EDOF 12-27 05:16 → 4EAST 12-27 05:16 → EDOF 12-27 05:16 → EME 12-27 05:16 → ENRESERV 12-27 05:19 → 4EAST 12-27 07:05 → EDOF 12-27 07:05 → 4EAST 12-29 12:17
PROVIDERS: Emergency Medicine; Family Medicine Sports Medicine; Hospitalist; Internal Medicine Nephrology; Physician Assistant Medical
DX: K92.1 Melena (principal); I25.10 Atherosclerotic heart disease of native coronary artery without angina pectoris; Z95.5 Presence of coronary angioplasty implant and graft; G47.33 Obstructive sleep apnea (adult) (pediatric); I13.2 Hypertensive heart and chronic kidney disease with heart failure and with stage 5 chronic kidney disease, or end stage renal disease; N18.6 End stage renal disease; I50.9 Heart failure, unspecified; D62 Acute posthemorrhagic anemia; E03.9 Hypothyroidism, unspecified; E78.5 Hyperlipidemia, unspecified; I48.0 Paroxysmal atrial fibrillation; I50.30 Unspecified diastolic (congestive) heart failure; Z90.710 Acquired absence of both cervix and uterus; Z87.891 Personal history of nicotine dependence; Q27.33 Arteriovenous malformation of digestive system vessel; J44.9 Chronic obstructive pulmonary disease, unspecified; D63.1 Anemia in chronic kidney disease; Z87.11 Personal history of peptic ulcer disease; Z99.2 Dependence on renal dialysis; Z90.5 Acquired absence of kidney; E66.9 Obesity, unspecified; Z68.35 Body mass index [BMI] 35.0-35.9, adult; Z79.899 Other long term (current) drug therapy; I95.89 Other hypotension
CPT/HCPCS: 80048; 80053; 80069; 82948; 83690; 84484; 85014; 85018; 85025; 85027; 86850; 86900; 86901; 86920; 93005; 94640; 94640 76; 94660; 94799; 99202; 99281; 99285; C9113; J1160; J1644; J2354; J2405; J7040; P9016

== ENCOUNTER 2018-01-02 10:20 | Emergency (ER) | payer OTHER, MEDICARE ==
[~2018-01-02] VITALS: Ht 160 cm; Wt 80.4 kg
[~2018-01-02 10:20] MED LIST changes: +MULTI VITAMIN1 EACH PO; +ZOFRAN ODT4 MG PO
[2018-01-02 11:26] LABS: HEMATOCRIT 37.2 % (36.0-46.0); MCH 30.9 PG (29.0-34.0); MCHC 32.3 G/DL (30.0-36.0); MCV 95.9 FL (83-99); PLATELET COUNT 111 K/uL (156-360); RBC DIS.WIDTH-CV 20.7 % (11.8-14.6); RED BLOOD COUNT 3.88 M/uL (3.80-5.20); WHITE BLOOD COUNT 6.7 K/uL (4.1-10.2)
[2018-01-02 11:32] LABS: INTER. NORMALIZED RATIO 1.4
[2018-01-02 11:34] LABS: PTT 27.5 SEC (25-37)
[2018-01-02 11:39] LABS: ALBUMIN 3.2 g/dL (3.2-4.8); CHLORIDE 104 mEq/L (99-109); POTASSIUM 4.1 mEq/L (3.7-5.4); SODIUM 139 mEq/L (136-147)
[2018-01-02 11:41] LABS: GLUCOSE 94 mg/dL (70-99); TOTAL PROTEIN 6.5 g/dL (6.4-8.3)
[2018-01-02 11:45] LABS: ALKALINE PHOSPHATASE 88 IU/L (3-129); CREATININE 4.4 mg/dL (0.6-1.3); GFR ESTIMATE (CALCULATED) 10 mL/min/
[2018-01-02 11:46] LABS: AST (GOT) 23 IU/L (2-34); TOTAL BILIRUBIN 0.5 mg/dL (0.0-1.0); TROP-I INTERPRETATION NEGATIVE; UREA NITROGEN (BUN) 19 mg/dL (9-23)
[2018-01-02 11:48] LABS: ALT (GPT) 6 IU/L (3-49)
[2018-01-02 12:53] LABS: APPEARANCE CLOUDY ((CLEAR)); BILIRUBIN NEGATIVE; BLOOD MODERATE; COLOR AMBER ((YELLOW)); GLUCOSE (STRIP) NEGATIVE; KETONES NEGATIVE; LEUKOCYTES SMALL; NITRITE NEGATIVE; PROTEIN (STRIP) >=500; UROBILINOGEN 0.2 MG/DL (0.2-1.0)
[2018-01-02 13:05] LABS: BACTERIA 2+ /HPF; COARSE GRANULAR CASTS 0-5 /LPF; EPITHELIAL CELLS RARE /HPF; MUCUS 1+ /LPF; UCUL ADDED? YES
[2018-01-02 13:06] LABS: AMORPHOUS URATES CRYSTALS 2+; HYALINE CASTS 0-5 /LPF
[2018-01-02 13:30] VITALS: BP 84/44
[2018-01-02] MEDS ORDERED: BREO ELLIPTA I1 EACH IH (13:31)
[2018-01-02] MEDS ORDERED: FLAGYL500 MG PO (13:32)
[2018-01-02] MEDS ORDERED: DIALYVITE 801 TABLET PO (13:32)
[2018-01-02] MEDS ORDERED: PLAVIX75 MG PO (13:32)
[2018-01-02] MEDS ORDERED: LIPITOR10 MG PO (13:33)
[2018-01-02] MEDS ORDERED: CORDARONE200 MG PO (13:33)
[2018-01-02] MEDS ORDERED: LEVAQUIN750 MG PO (13:38)
[2018-01-05 10:54] LABS: STOOL OCCULT BLD 1ST SPECIMEN POSITIVE
== END 2018-01-02 13:30 | disposition home or self-care (01) ==
LOC: EME 10:20
PROVIDERS: Emergency Medicine Emergency Medical Services
DX: E87.70 Fluid overload, unspecified (principal); R09.02 Hypoxemia; K92.2 Gastrointestinal hemorrhage, unspecified; D68.9 Coagulation defect, unspecified; N39.0 Urinary tract infection, site not specified; I12.9 Hypertensive chronic kidney disease with stage 1 through stage 4 chronic kidney disease, or unspecified chronic kidney disease; N18.9 Chronic kidney disease, unspecified; Z99.2 Dependence on renal dialysis; J45.909 Unspecified asthma, uncomplicated; E78.00 Pure hypercholesterolemia, unspecified; Z87.891 Personal history of nicotine dependence; Z95.0 Presence of cardiac pacemaker; Z88.0 Allergy status to penicillin
CPT/HCPCS: 71045; 80053; 81003; 82272; 83880; 84484; 85027; 85610; 85730; 86850; 86900; 86901; 87086; 93005; 94640; 99281; 99285; C9113; J2354; J3475

== ENCOUNTER 2018-01-11 19:48 | Inpatient (IN) | payer OTHER, MEDICARE ==
[~2018-01-11] VITALS: Ht 154.9 cm; Wt 80.6 kg
[~2018-01-11 19:48] MED LIST changes: +CORDARONE200 MG PO; +DIALYVITE 801 TABLET PO; +FLAGYL500 MG PO; +LEVAQUIN750 MG PO
[2018-01-11 20:22] LABS: CHLORIDE 100 mEq/L (99-109); SODIUM 138 mEq/L (136-147)
[2018-01-11 20:24] LABS: GLUCOSE 98 mg/dL (70-99)
[2018-01-11 20:28] LABS: GFR ESTIMATE (CALCULATED) 7 mL/min/
[2018-01-11 20:29] LABS: UREA NITROGEN (BUN) 30 mg/dL (9-23)
[2018-01-11 20:39] LABS: MCH 31.1 PG (29.0-34.0); MCHC 32.8 G/DL (30.0-36.0); MCV 94.7 FL (83-99); NRBC (%) 0.2 /100 WBC (0-0); PLATELET COUNT 113 K/uL (156-360); RBC DIS.WIDTH-CV 22.1 % (11.8-14.6); WHITE BLOOD COUNT 17.5 K/uL (4.1-10.2)
[2018-01-11 20:40] LABS: HEMOGLOBIN 8.9 G/DL (11.9-15.5); RED BLOOD COUNT 2.83 M/uL (3.80-5.20)
[2018-01-11] MEDS ORDERED: LASIX20 MG PO (23:10)
[2018-01-11] MEDS ORDERED: SYNTHROID125 MCG PO (23:10)
[2018-01-11] MEDS ORDERED: TOPROL XL25 MG PO (23:11)
[2018-01-11] MEDS ORDERED: NORCO 5/3251 TABLET PO (23:11)
[2018-01-11] MEDS ORDERED: ZANTAC300 MG PO (23:11)
[2018-01-11] MEDS ORDERED: PROVENTIL,2.5 MG/3 M IH (23:11)
[2018-01-12] VITALS (8 sets, daily range): BP systolic 87–108; BP diastolic 45–54
[2018-01-12 06:38] LABS: HEMATOCRIT 30.9 % (36.0-46.0); HEMOGLOBIN 9.9 G/DL (11.9-15.5); MCH 30.7 PG (29.0-34.0); MCV 95.7 FL (83-99); NRBC (%) 0.3 /100 WBC (0-0); PLATELET COUNT 92 K/uL (156-360); RBC DIS.WIDTH-CV 20.7 % (11.8-14.6); RBC DIS.WIDTH-SD 67.9 % (39-53); RED BLOOD COUNT 3.23 M/uL (3.80-5.20); WHITE BLOOD COUNT 15.5 K/uL (4.1-10.2)
[2018-01-12 07:05] LABS: CHLORIDE 102 MEQ/L (99-109); CREATININE 6.4 MG/DL (0.6-1.3); GFR ESTIMATE (CALCULATED) 7 mL/min/; GLUCOSE 96 mg/dL (70-99); SODIUM 141 MEQ/L (136-147); UREA NITROGEN (BUN) 33 mg/dL (9-23)
[2018-01-12 07:07] LABS: INTER. NORMALIZED RATIO 1.1
[2018-01-12 07:09] LABS: PTT 27.2 SEC (25-37)
[2018-01-12 07:43] LABS: BASOPHIL (%) 0.2 % (0-1); EOSINOPHIL (%) 0 % (0-5); IMMATURE GRANULOCYTE (%) 1.8 % (0.0-0.7); LYMPHOCYTE (%) 3.9 % (15-42); LYMPHOCYTE COUNT 0.6 K/uL (1.0-2.8); MONOCYTE (%) 4.5 % (3-12); MONOCYTE COUNT 0.7 K/uL (0-0.8); NEUTROPHIL (%) 89.6 % (45-76); NEUTROPHIL COUNT 13.9 K/uL (1.8-6.4)
[2018-01-12 10:19] LABS: HEPATITIS B SURFACE ANTIGEN Nonreactive
== END 2018-01-12 17:40 | disposition short-term general hospital (02) | DRG 811 ==
LOC: EME 19:48 → EDOF 01-12 00:22 → 2EAST 01-12 00:22 → ENRESERV 01-12 00:42 → 2EAST 01-12 02:18
PROVIDERS: Family Medicine Sports Medicine; Internal Medicine Nephrology
PROC: 30233N1 Transfusion of Nonautologous Red Blood Cells into Peripheral Vein, Percutaneous Approach (ICD-10-PCS; principal; 2018-01-12)
PROC: 5A1D70Z Performance of Urinary Filtration, Intermittent, Less than 6 Hours Per Day (ICD-10-PCS; 2018-01-12)
DX: D62 Acute posthemorrhagic anemia (principal); I13.2 Hypertensive heart and chronic kidney disease with heart failure and with stage 5 chronic kidney disease, or end stage renal disease; K25.4 Chronic or unspecified gastric ulcer with hemorrhage; I95.9 Hypotension, unspecified; E11.22 Type 2 diabetes mellitus with diabetic chronic kidney disease; N18.6 End stage renal disease; I50.9 Heart failure, unspecified; I48.0 Paroxysmal atrial fibrillation; Q27.33 Arteriovenous malformation of digestive system vessel; I25.2 Old myocardial infarction; D63.1 Anemia in chronic kidney disease; D72.829 Elevated white blood cell count, unspecified; E78.5 Hyperlipidemia, unspecified; K21.9 Gastro-esophageal reflux disease without esophagitis; Z90.5 Acquired absence of kidney; I25.10 Atherosclerotic heart disease of native coronary artery without angina pectoris; E03.9 Hypothyroidism, unspecified; E87.6 Hypokalemia; Z95.5 Presence of coronary angioplasty implant and graft; Z95.0 Presence of cardiac pacemaker; G47.30 Sleep apnea, unspecified; J45.909 Unspecified asthma, uncomplicated; Z99.2 Dependence on renal dialysis
CPT/HCPCS: 71045; 80048; 85014; 85018; 85025; 85027; 85610; 85730; 86850; 86900; 86901; 86920; 87340; 93005; 94640; 94640 76; 99202; 99281; 99285; C9113; J1644; J1940; P9016; P9047; S0028